=== PATIENT | female | born 1990 | race Caucasian/White ===

== ENCOUNTER → 2019-07-08 11:21 | Outpatient (BNVA) | payer SELFPAY | PROVIDERS: Family Provider Nurse Practitioner; PCP Nurse Practitioner; Visit Provider Family Medicine | DX: J10.1 Influenza due to other identified influenza virus with other respiratory manifestations (principal); R50.9 Fever, unspecified | CPT/HCPCS: 87804 ==

== ENCOUNTER → 2019-11-05 17:14 | Outpatient (BNVA) | payer SELFPAY | PROVIDERS: Family Provider Nurse Practitioner; PCP Nurse Practitioner; Visit Provider Nurse Practitioner | DX: J10.1 Influenza due to other identified influenza virus with other respiratory manifestations (principal); R50.9 Fever, unspecified | CPT/HCPCS: 87400 ==

== ENCOUNTER → 2019-11-06 14:30 | Outpatient (BNVA) | payer MEDICAID, SELFPAY | PROVIDERS: Family Provider Nurse Practitioner; PCP Nurse Practitioner; Visit Provider Nurse Practitioner | DX: J10.1 Influenza due to other identified influenza virus with other respiratory manifestations (principal); R50.9 Fever, unspecified | CPT/HCPCS: 87635 ==

== ENCOUNTER 2021-03-27 16:25 | Emergency (ER) | payer MEDICAID, SELFPAY ==
[2021-03-27 16:34] VITALS: BP 127/91; PULSE 89; RESP 18; TEMP 37; O2SAT 99; BMI 25.2
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
--- NOTE | 2021-03-27 17:16 | XRR_ITS ---
PROCEDURE INFORMATION: Exam: XR Left Hip Exam date and time: 03/27/2021 5:16 PM Age: 30 years old Clinical indication: Hip pain; Left hip TECHNIQUE: Imaging protocol: XR Left hip. Views: 2 or 3 views hip with pelvis when performed. Total images: 2 COMPARISON: No relevant prior studies available. FINDINGS: Bones/joints: Unremarkable. No acute fracture. Soft tissues: Unremarkable. XR/XR hip LT 2-3V wo/w pel* [id number] IMPRESSION: No acute findings. Radiation Dose CTDIVOL = (mGy): DLP = (mGy-cm)
[2021-03-27] MEDS: morphine 4 mg/mL SDV 1 mL IVP ×2 (17:45→19:30)
[2021-03-27] MEDS: sodium chloride 0.9% 1,000 ML 999 ML IV (17:45)
[2021-03-27] MEDS: ketorolac 30 mg/mL INJ IVP (17:45)
[2021-03-27] MEDS: ondansetron 2 mg/ML SDV 2 mL 4 MG IVP (17:45)
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
[2021-03-27 18:24] LABS: Basophils % 0.3 %; Eosinophils % 0.3 %; Hematocrit 44.6 % (37.0-47.0); Hemoglobin 14.8 g/dL (11.5-15.3); Lymphocytes # 2.3 10^3/uL (0.8-4.8); Lymphocytes % 16.3 %; Mean Corpuscular HGB Conc 33.2 g/dL (30.0-36.0); Mean Corpuscular Volume 93.5 fl (81-99); Mean Platelet Volume 10.5 fL (7.4-10.4); Monocytes % 7.3 %; Neutrophils # 10.69 10^3/uL (1.8-7.7); Neutrophils % 75.4 %; Nucleated Red Blood Cells % 0 %; Platelet Count 342 10^3/cmm (130-400); Red Blood Count 4.77 10^6/uL (4.1-5.3); Red Cell Distribution Width 11.9 % (12.1-15.1); White Blood Count 14.2 10^3/uL (4.0-10.0)
[2021-03-27 18:49] LABS: Add Urine Microscopic? YES; Bilirubin Urine Neg (Negative); Blood Urine Neg (Negative); Glucose Urine UA Norm (Normal); Ketones Urine Negative (Negative); Leukocyte Esterase Urine Negative (Negative); Nitrate Urine Negative (Negative); Protein Urine Trace (Negative); Urine Appearance Clear (CLEAR); Urine Color Yellow (Yellow); Urobilinogen Urine 1 mg/dL (Negative); pH Urine 6 (5-7)
[2021-03-27 18:50] LABS: Bacteria Urine 1+ /hpf; RBC Urine 0-4 /hpf (0-2); WBC Urine 0-4 /hpf (0-5)
[2021-03-27 18:50] LABS: HCG, Serum Qual Negative (Negative)
[2021-03-27 18:57] LABS: Alanine Aminotransferase 23 U/L (0-33); Albumin Level 4.8 g/dL (3.5-5.2); Alkaline Phosphatase 54 IU/L (35-105); Anion Gap 16.3 (5-19); Aspartate Amino Transferase 24 U/L (0-32); Blood Urea Nitrogen 13 mg/dL (6-20); Calcium 9.3 mg/dL (8.5-10.5); Carbon Dioxide 23 mmol/L (22-29); Chloride 104 mmol/L (98-107); Creatine Phosphokinase 125 U/L (26-192); Creatinine Clr Calc Pharmacy 151.7264; Globulin 2.9 g/dL (1.3-4.6); Glomerular Filtration Rate 116.6 mL/min (90-130); Glucose 95 mg/dL (65-115); Lipase 30 U/L (13-60); Osmolality Calculated 288 mOsm/kg (285-295); Potassium 4.3 mmol/L (3.5-5.1); Sodium 139 mmol/L (136-145); Total Bilirubin 0.4 mg/dL (0.15-1.2); Total Protein 7.7 g/dL (6.6-8.7)
[2021-03-27] MEDS: iohexol 350 mg/mL 100 mL Btl IV ×2 (19:14→19:18)
[2021-03-27] MEDS: ketorolac 30 mg/mL INJ 15 MG IVP (20:20)
[2021-03-27] MEDS: acetaminophen 500 mg Tablet 1000 MG PO (20:20)
[2021-03-27] MEDS: oxyCODONE 5 mg IR Tab/Cap PO (20:20)
[2021-03-27 20:42] VITALS: BP 118/78; PULSE 77; RESP 18; O2SAT 99
== END 2021-03-27 20:40 | disposition home or self-care (01) ==
PROVIDERS: Family Medicine; Emergency Provider Emergency Medicine; PCP Nurse Practitioner
DX: S00.531A Contusion of lip, initial encounter (principal); Y04.2XXA Assault by strike against or bumped into by another person, initial encounter; F17.210 Nicotine dependence, cigarettes, uncomplicated
CPT/HCPCS: 70450; 70486; 70498; 71045; 73080; 73110; 73502; 73562; 74177; 80053; 81001; 82550; 83690; 84703; 85025; 96361; 96374; 96375; 96376; 99284; J1885; J2270; J2405; J7030; Q9967

== ENCOUNTER → 2021-06-10 11:31 | Outpatient (BNVA) | payer BC, MEDICAID, SELFPAY | PROVIDERS: PCP Nurse Practitioner; Visit Provider Nurse Practitioner Family | DX: Z30.019 Encounter for initial prescription of contraceptives, unspecified (principal) | CPT/HCPCS: 81025 ==

== ENCOUNTER → 2022-06-23 14:08 | Outpatient (BNVA) | payer OTHER, MEDICAID, SELFPAY | PROVIDERS: PCP Nurse Practitioner; Visit Provider Nurse Practitioner Family | DX: F41.9 Anxiety disorder, unspecified (principal); Z30.42 Encounter for surveillance of injectable contraceptive | CPT/HCPCS: 81025 ==

== ENCOUNTER → 2023-03-13 09:38 | Outpatient (BNVA) | payer OTHER, BC, SELFPAY | PROVIDERS: PCP Nurse Practitioner; Visit Provider Nurse Practitioner Family | DX: F41.9 Anxiety disorder, unspecified (principal); Z68.27 Body mass index [BMI] 27.0-27.9, adult | CPT/HCPCS: 80053; 80061; 84443; 85025 ==

== ENCOUNTER → 2023-04-24 08:45 | Outpatient (BNVA) | payer OTHER, BC, SELFPAY | PROVIDERS: PCP Nurse Practitioner; Visit Provider Nurse Practitioner Family | DX: R79.89 Other specified abnormal findings of blood chemistry (principal); Z68.27 Body mass index [BMI] 27.0-27.9, adult | CPT/HCPCS: 80053 ==

== ENCOUNTER → 2023-08-14 15:13 | Outpatient (BNVA) | payer OTHER, BC, SELFPAY | PROVIDERS: PCP Nurse Practitioner; Visit Provider Nurse Practitioner Women's Health | DX: Z30.017 Encounter for initial prescription of implantable subdermal contraceptive (principal) | CPT/HCPCS: 81025 ==

== ENCOUNTER 2023-09-18 08:15 | Emergency (ER) | payer OTHER, BC, MEDICAID, SELFPAY ==
[2023-09-18 08:20] VITALS: BP 165/98; PULSE 89; RESP 16; TEMP 36.4; O2SAT 100; BMI 26.6
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
[2023-09-18] MEDS: dexamethasone 10 mg/mL INJ IM (09:40)
[2023-09-18 10:44] VITALS: BP 135/95; PULSE 88; O2SAT 97
== END 2023-09-18 10:46 | disposition home or self-care (01) ==
PROVIDERS: Emergency Provider Nurse Practitioner Family; PCP Nurse Practitioner
DX: M43.6 Torticollis (principal)
CPT/HCPCS: 72125; 96372; 99284; J1100

== ENCOUNTER 2023-10-12 06:00 | Outpatient (RCR) | payer OTHER, BC, MEDICAID, SELFPAY | END 2023-10-13 23:59 | disposition home or self-care (01) | LOC: APT 06:00 | PROVIDERS: Visit Provider Nurse Practitioner Family | DX: M54.2 Cervicalgia (principal); M43.6 Torticollis | CPT/HCPCS: 97161 ==

== ENCOUNTER 2023-10-14 06:00 | Outpatient (RCR) | payer OTHER, SELFPAY | END 2023-11-13 23:59 | disposition home or self-care (01) | LOC: APT 06:00 | PROVIDERS: Visit Provider Nurse Practitioner Family | DX: M54.2 Cervicalgia (principal); M43.6 Torticollis | CPT/HCPCS: 97032; 97110; 97140 ==

== ENCOUNTER 2023-10-27 13:20 | Outpatient (CLI) | payer OTHER, SELFPAY ==
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
== END 2023-10-27 13:21 | disposition home or self-care (01) ==
LOC: RAD 13:20
PROVIDERS: Visit Provider Nurse Practitioner Family
DX: S19.9XXA Unspecified injury of neck, initial encounter (principal); V89.2XXA Person injured in unspecified motor-vehicle accident, traffic, initial encounter; M54.2 Cervicalgia; M43.6 Torticollis
CPT/HCPCS: 72141

== ENCOUNTER 2023-11-14 06:00 | Outpatient (RCR) | payer OTHER, SELFPAY | END 2023-12-13 23:59 | disposition home or self-care (01) | LOC: APT 06:00 | PROVIDERS: Visit Provider Nurse Practitioner Family | DX: M54.2 Cervicalgia (principal); M43.6 Torticollis | CPT/HCPCS: 97110 ==

== ENCOUNTER → 2023-12-10 12:47 | Outpatient (BNVA) | payer OTHER, SELFPAY | PROVIDERS: PCP Nurse Practitioner Family; Visit Provider Orthopaedic Surgery | DX: M54.2 Cervicalgia (principal) | CPT/HCPCS: 72040 ==

== ENCOUNTER 2024-11-30 10:48 | Outpatient (CLI) | payer OTHER, SELFPAY ==
--- NOTE | 2024-11-30 11:00 | MR_ITS ---
WS: [id number] MRI BRAIN WITH AND WITHOUT CONTRAST HISTORY: G43.909 - Migraine, unspecified, not intractable, COMPARISON: CT head 03/27/2021 TECHNIQUE: Multiplanar imaging performed through the brain with MultiHance 19 ml's IV. No acute infarcts are seen. Cao-white matter differentiation is well preserved. Normal hippocampal formations. There is a very few tiny subcortical white matter T2 hyperintense lesions. No susceptibility artifacts or prior lacunar infarcts. Ventricles and extra-axial spaces are normal. Clivus and pituitary gland are normal. Visualized posterior fossa and brainstem are also normal. Mild ectopia of the cerebellar tonsils. Postcontrast images are negative for masses or vascular malformations. Dural venous sinuses are normal. Paranasal sinuses: Septated mucous retention cyst in the LEFT maxillary sinus. Mastoid air cells: Normal. Calvarium and scalp: Normal. MR/MR head wo/w con [id number] IMPRESSION: 1. No acute infarct, hemorrhage or mass. 2. Normal hippocampal formation. 3. Minimal T2 signal abnormality in the subcortical white matter. This can be noted with small vessel disease, migraines, hypertension and diabetes. 4. Mild ectopia cerebellar tonsils. 5. Complex septated LEFT mucous retention cyst.
[2024-11-30] MEDS: gadobenate dimeglumine 20 mL vial 19 ML IV (12:28)
== END 2024-11-30 10:49 | disposition home or self-care (01) ==
PROVIDERS: PCP Nurse Practitioner Family; Visit Provider Psychiatry & Neurology Neurology
DX: G43.909 Migraine, unspecified, not intractable, without status migrainosus (principal); R93.0 Abnormal findings on diagnostic imaging of skull and head, not elsewhere classified; M27.40 Unspecified cyst of jaw
CPT/HCPCS: 70553

== ENCOUNTER → 2025-04-03 09:49 | Outpatient (BNVA) | payer OTHER, SELFPAY | PROVIDERS: Family Provider Family Medicine; PCP Family Medicine; Visit Provider Family Medicine | DX: Z13.6 Encounter for screening for cardiovascular disorders (principal) | CPT/HCPCS: 80053; 80061; 84439; 84443; 85025 ==